=== PATIENT | female | born 1950 | race Caucasian/White ===

== ENCOUNTER → 2019-07-17 | Outpatient (CLI) | payer MEDICARE, OTHER ==
[~2019-07-17] MED LIST: DICY20TA10 PO
--- NOTE | 2019-07-17 10:46 | Diagnostic Imaging Report ---
Clinical indication: Patient with low back pain with bilateral leg radiculopathy. Exam: MRI of the lumbar spine performed without IV contrast. Sagittal T2, sagittal T1, sagittal T2 fat sat, and axial T2. Comparison: None. Findings: There is no acute lumbar spine fracture or dislocation. There are Modic type II degenerative signal changes involving the L5-S1 endplates and anterior aspect of the T12-L1 level. There are small perineural cysts involving the right S2-S3 region. There is no significant paraspinal soft tissue abnormality. The visualized portions of the distal thoracic spinal cord, conus medullaris, and cauda equina nerve roots are unremarkable. The conus medullaris tip is seen at the L1-L2 intervertebral level. T11-T12: There is a diffuse disc bulge with superimposed posterior disc osteophyte complex which causes at least mild central canal narrowing. There is no significant neural foramen narrowing. T12-L1, and L1-L2: Unremarkable. L2-L3: There is mild bilateral facet arthropathy. There is mild disc bulging in the foraminal region which causes etyr-hh-avebomls bilateral neural foramen narrowing. There is no significant central canal narrowing. L3-L4: There is mild bilateral facet arthropathy. There is a mild diffuse disc bulge. There is mrhe-bg-plrxnkzl bilateral neural foramen narrowing. L4-L5: There is mild diffuse disc bulge with disc spurs extending into the left foraminal region. There is severe left neural foramen narrowing and gcph-zc-nbcubgpo right neural foramen narrowing. There is moderate bilateral facet arthropathy. There is mild central canal stenosis. L5-S1: There is a diffuse disc bulge with severe loss of intervertebral disc height and disc spurs involving the foraminal regions bilaterally. There is mild right neural foramen narrowing and severe left neural foramen narrowing. There is no significant central canal narrowing. Impression: 1: There is multilevel lumbar spine degenerative disc disease with diffuse disc bulges, disc spurs, and facet arthropathy as described above. 2: There is T11-T12 diffuse disc bulge with posterior disc osteophyte complex mild central canal stenosis. Dictated by: Dictated on workstation # [id number]
== END ==
LOC: RAD 09:06
PROVIDERS: ATTEND Family Medicine
DX: M51.26 Other intervertebral disc displacement, lumbar region (principal); M51.24 Other intervertebral disc displacement, thoracic region; M77.8 Other enthesopathies, not elsewhere classified; M47.816 Spondylosis without myelopathy or radiculopathy, lumbar region; M47.814 Spondylosis without myelopathy or radiculopathy, thoracic region
CPT/HCPCS: 72148

== ENCOUNTER 2019-08-21 12:01 | Emergency (ER) | payer MEDICARE ==
[~2019-08-21] VITALS: Ht 160 cm; Wt 68.2 kg
--- NOTE | 2019-08-21 12:37 | ED GI ---
General Stated Complaint: RIGHT SIDE ABD PAIN, LOW FEVER X1-2 DAYS Source of Information: Patient History of Present Illness Date Seen by Provider: Aug 21, 2019 Time Seen by Provider: 12:18 Initial Comments 69-year-old female presenting with complaints of diarrhea for over 2 days and having right-sided abdominal pain. Her abdominal pain is been going on for almost 3 weeks but worse in the last 2 days with diarrhea. Because she was feeling so bad she had her sister take her to the urgent care this morning. When she got to the urgent care they had pressed on her abdomen and told her that she probably had appendicitis and to come to the emergency department. She has not felt well and overall feels run down. She has no pain with urination. She denies having any blood in her urine. She has had no vomiting. She has had no surgeries on her abdomen in the past. She takes some chronic pain medicine for her legs and her back but that has not helped her abdomen pain. The pain comes and goes in intensity in her abdomen. It is worse with palpation and when she is having cramping before having diarrhea. Allergies and Home Medications Allergies Coded Allergies: No Known Drug Allergies (Unverified , 08/21/19) Home Medications Dicyclomine HCl 20 Mg Tablet, 20 MG PO Q6H PRN for abdominal pain/cramping Prescribed by: LOBO VENTURA on 08/21/19 8763 Patient Home Medication List Home Medication List Reviewed: Yes Review of Systems Review of Systems Constitutional: chills; No dizziness; fever (low grade), malaise, weakness (general) EENTM: No Symptoms Reported Respiratory: No Symptoms Reported Cardiovascular: No Symptoms Reported Gastrointestinal: See HPI Genitourinary: See HPI Musculoskeletal: see HPI Skin: no symptoms reported; No rash Psychiatric/Neurological: No Symptoms Reported Past Enbzitx-Oeseht-Iefgdd Hx Past Med/Social Hx: Reviewed Nursing Past Med/Soc Hx Patient Social History Recent Foreign Travel: No Contact w/Someone Who Travel: No Past Medical History Surgeries: No Physical Exam Vital Signs Vital Signs - First Documented Capillary Refill : Height/Weight/BMI Height: '" Weight: lbs. oz. kg; BMI Method: General Appearance: WD/WN, mild distress HEENT: PERRL/EOMI, pharynx normal Neck: non-tender, full range of motion, supple, normal inspection Respiratory: chest non-tender, lungs clear, normal breath sounds, no respiratory distress, no accessory muscle use Cardiovascular: normal peripheral pulses, regular rate, rhythm Gastrointestinal: normal bowel sounds, soft, no pulsatile mass; No distended, No guarding, No rebound; tenderness (diffuse but worse in epigastric and right side of abdomen) Rectal: deferred Extremities: normal range of motion, no pedal edema, normal capillary refill, other (chronic tenderness to legs) Neurologic/Psychiatric: alert, normal mood/affect, oriented x 3 Skin: normal color, warm/dry Progress/Results/Core Measures Results/Orders Lab Results Laboratory Tests Test 08/21/19 12:10 08/21/19 12:42 Range/Units Urine Color YELLOW Urine Clarity CLEAR Urine pH 6.5 5-9 Urine Specific [place] 1.020 1.016-1.022 Urine Protein NEGATIVE NEGATIVE Urine Glucose (UA) NEGATIVE NEGATIVE Urine Ketones NEGATIVE NEGATIVE Urine Nitrite NEGATIVE NEGATIVE Urine Bilirubin NEGATIVE NEGATIVE Urine Urobilinogen 0.2 < = 1.0 MG/DL Urine Leukocyte Esterase NEGATIVE NEGATIVE Urine RBC (Auto) NEGATIVE NEGATIVE Urine RBC NONE /HPF Urine WBC 2-5 /HPF Urine Crystals NONE /LPF Urine Bacteria NEGATIVE /HPF Urine Casts PRESENT /LPF Urine Hyaline Casts 10-25 H /LPF Urine Mucus SMALL H /LPF Urine Culture Indicated NO White Blood Count 8.3 4.3-11.0 10^3/uL Red Blood Count 4.72 4.35-5.85 10^6/uL Hemoglobin 13.5 11.5-16.0 G/DL Hematocrit 41 35-52 % Mean Corpuscular Volume 88 80-99 FL Mean Corpuscular Hemoglobin 29 25-34 PG Mean Corpuscular Hemoglobin Concent 33 32-36 G/DL Red Cell Distribution Width 13.6 10.0-14.5 % Platelet Count 280 130-400 10^3/uL Mean Platelet Volume 9.5 7.4-10.4 FL Neutrophils (%) (Auto) 70 42-75 % Lymphocytes (%) (Auto) 21 12-44 % Monocytes (%) (Auto) 7 0-12 % Eosinophils (%) (Auto) 1 0-10 % Basophils (%) (Auto) 1 0-10 % Neutrophils # (Auto) 5.8 1.8-7.8 X 10^3 Lymphocytes # (Auto) 1.7 1.0-4.0 X 10^3 Monocytes # (Auto) 0.6 0.0-1.0 X 10^3 Eosinophils # (Auto) 0.1 0.0-0.3 10^3/uL Basophils # (Auto) 0.0 0.0-0.1 10^3/uL Sodium Level 144 135-145 MMOL/L Potassium Level 3.6 3.6-5.0 MMOL/L Chloride Level 102 98-107 MMOL/L Carbon Dioxide Level 25 21-32 MMOL/L Anion Gap 17 H 5-14 MMOL/L Blood Urea Nitrogen 12 7-18 MG/DL Creatinine 0.67 0.60-1.30 MG/DL Estimat Glomerular Filtration Rate > 60 BUN/Creatinine Ratio 18 Glucose Level 199 H 70-105 MG/DL Calcium Level 9.7 8.5-10.1 MG/DL Corrected Calcium 9.3 8.5-10.1 MG/DL Total Bilirubin 0.5 0.1-1.0 MG/DL Aspartate Amino Transf (AST/SGOT) 18 5-34 U/L Alanine Aminotransferase (ALT/SGPT) 32 0-55 U/L Alkaline Phosphatase 97 40-136 U/L Total Protein 7.6 6.4-8.2 GM/DL Albumin 4.5 3.2-4.5 GM/DL Lipase 27 8-78 U/L My Orders Orders - LOBO VENTURA MD Comprehensive Metabolic Panel (08/21/19 12:12) Lipase (08/21/19 12:12) Ua Culture If Indicated (08/21/19 12:12) Ed Iv/Invasive Line Start (08/21/19 12:12) Cbc With Automated Diff (08/21/19 12:12) Ct Abdomen/Pelvis W (08/21/19 12:35) Iohexol Injection (Omnipaque 350 Mg/Ml 1 (08/21/19 13:30) Received Contrast (Hold Metformin- Contr (08/21/19 13:30) Sodium Chloride Flush (Catheter Flush Sy (08/21/19 13:30) Ns (Ivpb) (Sodium Chloride 0.9% Ivpb Bag (08/21/19 13:30) Dicyclomine Capsule (Bentyl Capsule) (08/21/19 15:11) Medications Given in ED Current Medications Medications Dose Ordered Sig/Chaka Route Start Time Stop Time Status Last Admin Dose Admin Iohexol 100 ml ONCE ONCE IV 08/21/19 13:30 08/21/19 13:31 DC 08/21/19 13:40 100 ML Sodium Chloride 10 ml NEEDED PRN IV 08/21/19 13:30 08/21/19 16:32 DC 08/21/19 13:40 10 ML Sodium Chloride 100 ml ONCE ONCE IV 08/21/19 13:30 08/21/19 13:31 DC 08/21/19 13:40 100 ML Vital Signs/I&O 08/21/19 08/21/19 08/21/19 12:15 12:15 15:30 Temp 37.1 36.3 36.3 Pulse 91 97 97 Resp 18 16 16 B/P (MAP) 153/85 (107) 165/97 165/97 (107) Pulse Ox 99 100 100 O2 Delivery Room Air Room Air Room Air Progress Progress Note #1: Progress Note check labs and CT scan of abdomen/pelvis to evaluate her colon and intestines as well as the liver and gallbladder. Give IVF for hydration. Progress Note #2: Progress Note Labs do not show any acute significant abnormality. She has no acute signs of appendicitis on CT scan. She has diverticulosis. Will treat for viral GI illness and diarrhea. Try dicyclomine and have her push fluids and rest. encouraged to check with clinic for continued concerns. Advised she likely needs a colonoscopy to evaluate her colon for her pain since she has had some issues for several weeks but worse in last few days. Diagnostic Imaging Diagonstic Imaging: CT Plain Films/CT/US/NM/MRI: abdomen, pelvis Comments NAME: THERESE BENITEZ [facility] REC#: [id number] PT STATUS: REG ER : 1950 PHYSICIAN: LOBO VENTURA MD ADMIT DATE: 08/21/19/ER FS Draft Date of Exam:08/21/19 CT ABDOMEN/PELVIS W PROCEDURE: CT abdomen and pelvis with contrast. TECHNIQUE: Multiple contiguous axial images were obtained through the abdomen and pelvis after administration of intravenous contrast. Auto Exposure Controls were utilized during the CT exam to meet ALARA standards for radiation dose reduction. INDICATION: Nausea and diarrhea for 2 days. The patient has sharp right lower quadrant abdominal pain. The study is performed to evaluate for appendicitis. COMPARISON: No prior studies are available for comparison. FINDINGS: The lung bases are clear. The liver and gallbladder are unremarkable. No biliary ductal dilatation is seen. The pancreas and spleen are unremarkable. No adrenal mass is detected. Left kidney contains a tiny cortical low density, too small to characterize. Aorta is non-aneurysmal. The small and large bowel loops are normal caliber. There is no obstruction. The appendix is not well visualized in the right lower quadrant, however, no inflammatory changes in the right lower quadrant are seen to suggest appendicitis. No free fluid or fluid collection is seen. There is diverticulosis of the sigmoid colon but no evidence of acute diverticulitis. Bladder and uterus are unremarkable. There is a 16 mm cyst involving the left ovary. IMPRESSION: 1. Nonvisualized appendix. No secondary signs of acute appendicitis are identified. No acute features are seen. 2. Uncomplicated diverticulosis. Dictated on workstation # [id number] Dict: 08/21/19 1406 Trans: 08/21/19 1446 [facility] [id number] Interpreted by: ISAURA PICHARDO MD Electronically signed by: Departure Impression Primary Impression: Diarrhea Qualified Codes: R19.7 - Diarrhea, unspecified Additional Impressions: Diverticulosis Viral gastroenteritis Disposition: HOME, SELF-CARE Condition: Stable Departure-Patient Inst. Decision time for Depature: 15:13 Referrals: YENI DIXON MD (PCP/Family) Primary Care Physician Patient Instructions: Diverticulosis (DC), Viral Gastroenteritis, Adult (DC) Add. Discharge Instructions: Drink plenty of fluids and stay well hydrated Check with clinic for continued concerns and they will likely want to set you up to have a colonoscopy to look into your abdominal cramping/pain and the diarrhea with your diverticulosis Scripts Dicyclomine HCl (Dicyclomine HCl) 20 Mg Tablet 20 MG PO Q6H PRN for abdominal pain/cramping for 10 Days, #40 TAB 0 Refills Prov: LOBO VENTURA MD 08/21/19 LOBO VENTURA MD Aug 21, 2019 12:37
[2019-08-21 13:16] LABS: BACTERIA,URINE NEGATIVE /HPF; BILIRUBIN,URINE NEGATIVE (NEGATIVE); CLARITY,URINE CLEAR; COLOR,URINE YELLOW; GLUCOSE, URINE (UA) NEGATIVE (NEGATIVE); KETONES,URINE NEGATIVE (NEGATIVE); LEUKOCYTE ESTERASE ,URINE NEGATIVE (NEGATIVE); NITRITE,URINE NEGATIVE (NEGATIVE); PH,URINE 6.5 (5-9); PROTEIN,URINE NEGATIVE (NEGATIVE)
[2019-08-21 13:17] LABS: HEMATOCRIT 41 % (35-52); HEMOGLOBIN 13.5 G/DL (11.5-16.0); MEAN CORPUSCULAR HEMOGLOBIN 29 PG (25-34); MEAN CORPUSCULAR VOLUME 88 FL (80-99); WHITE BLOOD COUNT 8.3 10^3/uL (4.3-11.0)
[2019-08-21 13:18] LABS: BASOPHILS % (AUTO) 1 % (0-10); EOSINOPHILS # (AUTO) 0.1 10^3/uL (0.0-0.3); EOSINOPHILS % (AUTO) 1 % (0-10); LYMPHOCYTES # (AUTO) 1.7 X 10^3 (1.0-4.0); LYMPHOCYTES % (AUTO) 21 % (12-44); MEAN CORPUSCULAR HGB CONC 33 G/DL (32-36); MEAN PLATELET VOLUME 9.5 FL (7.4-10.4); MONOCYTES # (AUTO) 0.6 X 10^3 (0.0-1.0); MONOCYTES % (AUTO) 7 % (0-12); NEUTROPHILS # (AUTO) 5.8 X 10^3 (1.8-7.8); NEUTROPHILS % (AUTO) 70 % (42-75); PLATELET COUNT 280 10^3/uL (130-400); RED CELL DISTRIBUTION WIDTH 13.6 % (10.0-14.5)
[2019-08-21 13:20] LABS: ALANINE AMINOTRANSFERASE 32 U/L (0-55); ALBUMIN 4.5 GM/DL (3.2-4.5); ALKALINE PHOSPHATASE 97 U/L (40-136); BILIRUBIN,TOTAL 0.5 MG/DL (0.1-1.0); BUN/CREATININE RATIO 18; CALCIUM 9.7 MG/DL (8.5-10.1); CARBON DIOXIDE 25 MMOL/L (21-32); CHLORIDE 102 MMOL/L (98-107); CREATININE SERUM 0.67 MG/DL (0.60-1.30); GFR ESTIMATED > 60; GLUCOSE 199 MG/DL (70-105); LIPASE 27 U/L (8-78); POTASSIUM 3.6 MMOL/L (3.6-5.0); SODIUM 144 MMOL/L (135-145); TOTAL PROTEIN 7.6 GM/DL (6.4-8.2)
[2019-08-21] MEDS ORDERED: IOHEXOL 350 MG/ML 100 ML (OMNIPAQUE 350) VIAL IV ONE (13:30)
[2019-08-21] MEDS ORDERED: CATHETER FLUSH 10 ML SYR IV PRN (13:30)
[2019-08-21] MEDS ORDERED: HOLD METFORMIN - RECEIVED CONTRAST 20 ML VIAL IV SCH (13:30)
[2019-08-21] MEDS ORDERED: NS 100 ML (IVPB) BAG IV ONE (13:30)
--- NOTE | 2019-08-21 14:47 | Diagnostic Imaging Report ---
PROCEDURE: CT abdomen and pelvis with contrast. TECHNIQUE: Multiple contiguous axial images were obtained through the abdomen and pelvis after administration of intravenous contrast. Auto Exposure Controls were utilized during the CT exam to meet ALARA standards for radiation dose reduction. INDICATION: Nausea and diarrhea for 2 days. The patient has sharp right lower quadrant abdominal pain. The study is performed to evaluate for appendicitis. COMPARISON: No prior studies are available for comparison. FINDINGS: The lung bases are clear. The liver and gallbladder are unremarkable. No biliary ductal dilatation is seen. The pancreas and spleen are unremarkable. No adrenal mass is detected. Left kidney contains a tiny cortical low density, too small to characterize. Aorta is non-aneurysmal. The small and large bowel loops are normal caliber. There is no obstruction. The appendix is not well visualized in the right lower quadrant, however, no inflammatory changes in the right lower quadrant are seen to suggest appendicitis. No free fluid or fluid collection is seen. There is diverticulosis of the sigmoid colon but no evidence of acute diverticulitis. Bladder and uterus are unremarkable. There is a 16 mm cyst involving the left ovary. IMPRESSION: 1. Nonvisualized appendix. No secondary signs of acute appendicitis are identified. No acute features are seen. 2. Uncomplicated diverticulosis. Dictated by: Dictated on workstation # [id number]
[2019-08-21] MEDS ORDERED: DICYCLOMINE 10 MG (BENTYL) CAP PO STA (15:11)
[2019-08-21] MEDS ORDERED: DICY20TA10 PO (15:15)
[2019-08-21 15:30] VITALS: BP 165/97
== END 2019-08-21 15:30 | disposition home or self-care (01) ==
LOC: EDUNIT# 12:01 → ER FS 12:02
DX: K57.30 Diverticulosis of large intestine without perforation or abscess without bleeding (principal); A08.4 Viral intestinal infection, unspecified
CPT/HCPCS: 36415; 74177; 80053; 81000; 83690; 85025

== ENCOUNTER → 2020-10-25 | Outpatient (CLI) | payer MEDICARE, OTHER ==
--- NOTE | 2020-10-25 16:24 | Diagnostic Imaging Report ---
EXAMINATION: US Lower Extremity Arterial Duplex Bilateral. TECHNIQUE: Multiple real-time grayscale images were obtained over both lower extremities in various projections. Additional duplex Doppler and color Doppler images were also obtained. HISTORY: Decreased pedal pulses. COMPARISON: None available. FINDINGS: Right lower extremity: Triphasic flow is seen within the common femoral and superficial femoral arteries. Biphasic flow is seen in the distal superficial femoral, popliteal, anterior tibial, and posterior tibial arteries. Abnormal monophasic flow is seen within the right profunda and dorsalis pedis arteries. There is abrupt decrease in velocity within the dorsalis pedis artery. Left lower extremity: A triphasic waveform is seen within the common femoral and superficial femoral arteries. Abnormal monophasic flow is seen within the distal superficial femoral, popliteal, posterior tibial, and dorsalis pedis arteries. Biphasic flow is seen within the anterior tibial artery. There is abrupt decrease in velocity seen within the posterior tibial and dorsalis pedis arteries. IMPRESSION: 1. Decreased velocity and abnormal monophasic flow within the right dorsalis pedis artery suggestive of a hemodynamically significant stenosis at this level. 2. Abnormal monophasic flow is seen within the distal superficial femoral, popliteal, posterior tibial, and dorsalis pedis arteries suggestive of hemodynamically significant stenosis at these levels. 3. Abnormal monophasic flow within the bilateral profunda arteries suggestive of hemodynamically significant stenosis. Dictated by: Dictated on workstation # [id number]
--- NOTE | 2020-10-25 17:48 | Diagnostic Imaging Report ---
PROCEDURE: US Venous Lower Ext Zhang. TECHNIQUE: Multiple real-time grayscale images were obtained over the lower extremities in various projections, bilaterally. Additional duplex Doppler and color Doppler images were also obtained. INDICATION: Decreased pedal pulses. FINDINGS: There is no evidence of right or left lower extremity DVT. Both lower extremity deep venous systems shows normal compressibility with normal response to augmentation and Valsalva. No fluid collection or mass is detected. IMPRESSION: No evidence of right or left lower extremity DVT. Dictated by: Dictated on workstation # [id number]
--- NOTE | 2020-10-25 18:58 | Diagnostic Imaging Report ---
HISTORY: Decreased pedal pulses COMPARISON: None TECHNIQUE: Doppler ultrasound performed to evaluate the ankle-brachial indices. FINDINGS/ IMPRESSION: Normal blood flow in the bilateral dorsalis pedis. Normal ankle-brachial indices, measuring 1.2 on the right and 1.1 on the left. Dictated by: Dictated on workstation # [id number]
== END ==
LOC: RAD 12:12
PROVIDERS: ATTEND Nurse Practitioner
DX: R09.89 Other specified symptoms and signs involving the circulatory and respiratory systems (principal)
CPT/HCPCS: 93922; 93925; 93970